=== PATIENT | female | born 1935 ===

== ENCOUNTER → 2016-05-21 | Outpatient (CLI) | payer MEDICARE, BC ==
--- NOTE | 2016-06-06 09:28 | MM ---
Reason for exam: screening (asymptomatic). Last mammogram was performed 2 years and 4 months ago. History: Patient is postmenopausal and is nulliparous. Family history of breast cancer in sister at age 68. Benign excisional biopsy of the left breast, 1978. Physical Findings: A clinical breast exam by your physician is recommended on an annual basis and results should be correlated with mammographic findings. MG 3D Screening Mammo W/Cad Bilateral CC and MLO view(s) were taken. Prior study comparison: January 26, 2014, mammogram, performed at [facility]. December 03, 2012, mammogram, performed at [facility]. The breast tissue is heterogeneously dense. This may lower the sensitivity of mammography. No suspicious calcifications are seen. Nodular density upper outer left breast, 6cm from nipple. This finding is changed when compared with previous exams. ASSESSMENT: Incomplete: need additional imaging evaluation, BI-RAD 0 RECOMMENDATION: Special view mammogram of the left breast. If lesion persists on supplemental views, image directed ultrasound is recommended. [facility] will attempt to contact patient to return for supplemental views and ultrasound if indicated.
== END | disposition home or self-care (01) ==
LOC: RADMAMWWP 09:29
PROVIDERS: ATTEND Family Medicine
DX: Z12.31 Encounter for screening mammogram for malignant neoplasm of breast (principal); R92.2 Inconclusive mammogram
CPT/HCPCS: 77063; G0202

== ENCOUNTER → 2016-06-09 | Outpatient (CLI) | payer MEDICARE, BC ==
--- NOTE | 2016-06-09 10:11 | MM ---
Reason for exam: additional evaluation requested from abnormal screening. Last mammogram was performed 1 month ago. History: Patient is postmenopausal and is nulliparous. Family history of breast cancer in sister at age 68. Benign excisional biopsy of the left breast, 1978. Physical Findings: Nurse did not find any significant physical abnormalities on exam. MG 3D Work Up W/Cad LT ML, spot compression MLO, and spot compression CC view(s) were taken of the left breast. Prior study comparison: May 21, 2016, bilateral MG 3d screening mammo w/cad. January 26, 2014, mammogram, performed at [facility]. The breast tissue is heterogeneously dense. This may lower the sensitivity of mammography. Probable chronic distortion at biopsy site. No significant new findings when compared with previous films. These results were verbally communicated with the patient and result sheet given to the patient on 06/09/16. ASSESSMENT: Probably benign, BI-RAD 3 RECOMMENDATION: Follow-up diagnostic mammogram of the left breast in 6 months.
== END | disposition home or self-care (01) ==
LOC: RADMAMWWP 09:01
PROVIDERS: ATTEND Family Medicine
DX: R92.8 Other abnormal and inconclusive findings on diagnostic imaging of breast (principal)
CPT/HCPCS: G0206; G0279

== ENCOUNTER → 2016-12-30 | Outpatient (CLI) | payer OTHER ==
--- NOTE | 2016-12-30 09:54 | MM ---
Reason for exam: follow-up at short interval from prior study. Last mammogram was performed 7 months ago. History: Patient is postmenopausal and is nulliparous. Family history of breast cancer in sister at age 68. Benign excisional biopsy of the left breast, 1978. Physical Findings: Nurse did not find any significant physical abnormalities on exam. MG 3D Diag Mammo W/Cad LT CC and MLO view(s) were taken of the left breast. Prior study comparison: June 09, 2016, left breast MG 3d work up w/cad LT. May 21, 2016, bilateral MG 3d screening mammo w/cad. The breast tissue is heterogeneously dense. This may lower the sensitivity of mammography. No suspicious calcifications are seen. Post operative changes in the left breast. No significant new findings when compared with previous films. These results were verbally communicated with the patient and result sheet given to the patient on 12/30/16. ASSESSMENT: Benign, BI-RAD 2 RECOMMENDATION: Return to routine screening mammogram schedule for both breasts. Back on schedule for May 2017.
== END | disposition home or self-care (01) ==
LOC: RADMAMWWP 08:55
PROVIDERS: ATTEND Family Medicine
DX: R92.8 Other abnormal and inconclusive findings on diagnostic imaging of breast (principal)
CPT/HCPCS: G0206; G0279

== ENCOUNTER → 2018-09-23 | Outpatient (CLI) | payer OTHER ==
--- NOTE | 2018-09-24 12:58 | MM ---
Reason for exam: screening (asymptomatic). Last mammogram was performed 1 year and 9 months ago. History: Patient is postmenopausal and is nulliparous. Family history of breast cancer in sister at age 68. Benign excisional biopsy of the left breast, 1978. Physical Findings: A clinical breast exam by your physician is recommended on an annual basis and results should be correlated with mammographic findings. MG 3D Screening Mammo W/Cad Bilateral CC and MLO view(s) were taken. Prior study comparison: December 30, 2016, left breast MG 3d diag mammo w/cad LT. June 09, 2016, left breast MG 3d work up w/cad LT. The breast tissue is heterogeneously dense. This may lower the sensitivity of mammography. Stable benign calcifications. There is no discrete abnormality. No significant changes when compared with prior studies. ASSESSMENT: Benign, BI-RAD 2 RECOMMENDATION: Routine screening mammogram of both breasts in 1 year.
== END | disposition home or self-care (01) ==
LOC: RADMAMWWP 11:35
PROVIDERS: ATTEND Family Medicine
DX: Z12.31 Encounter for screening mammogram for malignant neoplasm of breast (principal)
CPT/HCPCS: 77063; 77067

== ENCOUNTER → 2021-10-15 | Outpatient (CLI) | payer OTHER ==
--- NOTE | 2021-10-15 13:19 | XR ---
EXAMINATION TYPE: XR ribs RT DATE OF EXAM: 10/15/2021 CLINICAL HISTORY: Right-sided rib pain after coughing injury. TECHNIQUE: A frontal and oblique images of the right-sided ribs. COMPARISON: None FINDINGS: There is no acute displaced right-sided rib fracture. Visualized right lung is clear witho ut pneumothorax. Metallic anchors from rotator cuff surgery in the right humeral head are present. Ov erlying soft tissues are unremarkable. IMPRESSION: As above.
== END | disposition home or self-care (01) ==
LOC: RADXRMAIN 12:45
PROVIDERS: ATTEND Family Medicine
DX: R07.81 Pleurodynia (principal)

== ENCOUNTER → 2022-01-31 | Outpatient (CLI) | payer MEDICARE, BC ==
--- NOTE | 2022-01-31 13:53 | XR ---
EXAMINATION TYPE: XR chest 2V DATE OF EXAM: 01/31/2022 COMPARISON: NONE HISTORY: Shortness of breath TECHNIQUE: Frontal and lateral views of the chest are obtained. FINDINGS: Scattered senescent parenchymal changes noted. Hyperinflation compatible with COPD. No evidence for infiltrate. No evidence for atelectasis. Heart size is stable. Mediastinal structures are stable and grossly unremarkable. No evidence for hilar prominence. Degenerative changes dorsal spine. IMPRESSION: 1. No evidence for acute pulmonary disease.
== END | disposition home or self-care (01) ==
LOC: RADXRMAIN 13:27
PROVIDERS: ATTEND Family Medicine
DX: R07.89 Other chest pain (principal)
CPT/HCPCS: 71046

== ENCOUNTER → 2022-08-11 | Outpatient (CLI) | payer MEDICARE, BC ==
--- NOTE | 2022-08-11 15:33 | XR ---
EXAMINATION TYPE: XR chest 2V DATE OF EXAM: 08/11/2022 COMPARISON: 01/31/2022 HISTORY: Shortness of breath TECHNIQUE: Frontal and lateral views of the chest are obtained. FINDINGS: Scattered senescent parenchymal changes noted. Hyperinflation compatible with COPD. No evidence for infiltrate. No evidence for atelectasis. Heart size is stable. Mediastinal structures are stable and grossly unremarkable. Fixed hiatal. No evidence for hilar prominence. Degenerative changes dorsal spine. IMPRESSION: 1. No evidence for acute pulmonary disease.
== END | disposition home or self-care (01) ==
LOC: RADXRMAIN 15:06
PROVIDERS: ATTEND Family Medicine
DX: R06.02 Shortness of breath (principal); R09.89 Other specified symptoms and signs involving the circulatory and respiratory systems
CPT/HCPCS: 71046

== ENCOUNTER → 2022-11-12 | Outpatient (CLI) | payer OTHER ==
--- NOTE | 2022-11-12 09:10 | MM ---
Reason for Exam: Screening (asymptomatic). Last mammogram was performed 1 year(s) and 1 month(s) ago. Patient History: Menarche at age 12. Patient has no children. Postmenopausal. 1978, Benign Excisional Biopsy on the left side. Sister had breast cancer, age 68. Prior Study Comparison: 12/30/2016 Left Diagnostic Mammogram, [facility]. 09/23/2018 Bilateral Screening Mammogram, [facility]. 09/24/2021 Bilateral Screening Mammogram, [facility]. Tissue Density: There are scattered fibroglandular densities. Findings: Analyzed By CAD. There is no suspicious group of microcalcifications or new suspicious mass in either breast. Overall Assessment: Negative, BI-RAD 1 Management: Screening Mammogram of both breasts in [address] [facility] will attempt to contact patient to return for supplemental views and ultrasound if indicated. Patient should continue monthly self-breast exams. A clinical breast exam by your physician is recommended on an annual basis. This exam should not preclude additional follow-up of suspicious palpable abnormalities. Note on Kasie scores and lifetime risk: 1. A Kasie score greater than 3% is considered moderate risk. If this is the case, consider specialist referral to assess eligibility for a risk reducing agent. 2. If overall lifetime risk for the development of breast cancer is 20% or higher, the patient may qualify for future screening with alternating mammogram and breast MRI. Electronically signed and approved by: David Ho DO
== END | disposition home or self-care (01) ==
LOC: RADMAMWWP 07:47
DX: Z12.31 Encounter for screening mammogram for malignant neoplasm of breast (principal); Z78.0 Asymptomatic menopausal state; Z80.3 Family history of malignant neoplasm of breast
CPT/HCPCS: 77063; 77067

== ENCOUNTER 2023-07-14 05:49 | Emergency (ER) | payer MEDICARE, BC ==
[2023-07-14 05:59] VITALS: RESP 18
[2023-07-14 06:26] LABS: Basophils % (A) 1 %; Eosinophils # (A) 0.3 k/uL (0-0.7); Eosinophils % (A) 4 %; HCT 44.2 % (34.0-46.0); HGB 14.6 gm/dL (11.4-16.0); Lymphocytes # (A) 1.7 k/uL (1.0-4.8); Lymphocytes % (A) 25 %; MCV 91.1 fL (80.0-100.0); Mean Platelet Volume 7.9; Monocytes # (A) 0.4 k/uL (0-1.0); Monocytes % (A) 6 %; Neutrophils # (A) 4.3 k/uL (1.3-7.7); Neutrophils % (A) 63 %; Platelet Count 241 k/uL (150-450); RBC 4.86 m/uL (3.80-5.40); RDW 13.2 % (11.5-15.5); WBC 6.8 k/uL (3.8-10.6)
[2023-07-14] MEDS: SODIUM CHLORIDE 0.9% 500 ML 500 ML IV STA (06:30)
[2023-07-14 06:36] LABS: ALT 14 U/L (4-34); African American GFR (CKD) >90 (>60 ml/min/1.73 sqM); Albumin 4.1 g/dL (3.5-5.0); Anion Gap 9 mmol/L; Blood Urea Nitrogen 18 mg/dL (7-17); Calcium 9.2 mg/dL (8.4-10.2); Carbon Dioxide 21 mmol/L (22-30); Chloride 108 mmol/L (98-107); Glucose 104 mg/dL (74-99); Non-African American GFR(CKD) 81 (>60 ml/min/1.73 sqM); Sodium 138 mmol/L (137-145); Total Bilirubin 0.7 mg/dL (0.2-1.3); Total Protein 6.8 g/dL (6.3-8.2)
[2023-07-14 06:39] LABS: AST 30 U/L (14-36); Alkaline Phosphatase 69 U/L (38-126); Magnesium 1.9 mg/dL (1.6-2.3); Potassium 4.5 mmol/L (3.5-5.1)
--- NOTE | 2023-07-14 07:29 | XR ---
EXAMINATION TYPE: XR chest 2V DATE OF EXAM: 07/14/2023 COMPARISON: 08/11/2022 INDICATION: Fall TECHNIQUE: Frontal and lateral views of the chest are obtained. FINDINGS: The heart size is normal. The pulmonary vasculature is normal. The lungs are clear. No displaced rib fractures are identified. No pneumothorax is evident. IMPRESSION: 1. No acute pulmonary process.
--- NOTE | 2023-07-14 07:34 | CT ---
EXAMINATION TYPE: CT brain morro melara DATE OF EXAM: 07/14/2023 COMPARISON: None HISTORY: Fall CT DLP: 1351.5 mGycm, Automated exposure control for dose reduction was used. CONTRAST: Patient injected with mL of . CT of the brain is performed utilizing 3 mm thick sections through the posterior fossa and 3 mm thick sections through the remaining calvarium. Study is performed within 24 hours of arrival to the hospital. No abnormal hyperdensity is present to suggest an acute intracranial hemorrhage. No mass lesion is evident. No acute infarcts are evident. There is patchy periventricular white matter hypodensity, likely on t he basis of chronic white matter ischemic changes. No suspicious acute intracranial process. No acute posttraumatic change is identified. Ventricles and sulci are prominent for the patient age. There is an air-fluid level within the sphenoid sinus. Correlate for acute sphenoid sinusitis. Remain ing paranasal sinuses are clear. Mastoid air cells are clear. IMPRESSIONS: 1. Atrophy with chronic appearing periventricular white matter ischemic changes. 2. No acute intracranial process. Follow-up MRI can be performed as clinically indicated CT cervical spine. COMPARISON: None CT of the cervical spine is performed in the axial plane at 2 mm thick sections. Reconstructed image s in the coronal, and sagittal plane are reviewed on the computer. No acute fractures are evident. Vertebral body alignment is normal. Diffuse narrowing of disc height is present. Some mild spondylosis is present at C4-5. Vertebral body heights are preserved. No spinal canal stenosis is evident. No neural foraminal stenosis is evident. Spina bifida occulta of C1 is evident. IMPRESSION: 1. No acute posttraumatic changes cervical spine
--- NOTE | 2023-07-14 07:36 | ED ---
Fall HPI - General Chief Complaint: Fall Stated Complaint: Fall, head injury Time Seen by Provider: 07/14/23 05:57 Source: patient, RN notes reviewed Mode of arrival: wheelchair Limitations: no limitations - History of Present Illness Initial Comments: 87-year-old female presents emergency department with chief plaint of fall around 3 PM yesterday. Patient states that she was coming outside front in the room was waiting for her to get the vehicle when she just suddenly fell. She states an episode 1 week ago with similar event. Patient states she is unsure why she is falling. She does complain of upper abdominal pain and pressure denies chest pain shortness of breath no dizzy spells no focal weakness denies any fevers chills cough congestion - Related Data Home Medications Medication Instructions Recorded Confirmed Unable To Assess [Unable to Assess] 05/11/15 05/11/15 Allergies Allergy/AdvReac Type Severity Reaction Status Date / Time amoxicillin trihydrate Allergy Unknown Verified 07/14/23 05:58 [From Augmentin] atropine Allergy Unknown Verified 07/14/23 05:58 ciprofloxacin [From Cipro] Allergy Unknown Verified 07/14/23 05:58 ciprofloxacin HCl Allergy Unknown Verified 07/14/23 05:58 [From Cipro] meperidine HCl [From Demerol] Allergy Unknown Verified 07/14/23 05:58 morphine Allergy Unknown Verified 07/14/23 05:58 potassium clavulanate Allergy Unknown Verified 07/14/23 05:58 [From Augmentin] prednisone Allergy Unknown Verified 07/14/23 05:58 pregabalin [From Lyrica] Allergy Unknown Verified 07/14/23 05:58 prochlorperazine Allergy Unknown Verified 07/14/23 05:58 [From Compazine] prochlorperazine edisylate Allergy Unknown Verified 07/14/23 05:58 [From Compazine] prochlorperazine maleate Allergy Unknown Verified 07/14/23 05:58 [From Compazine] Review of Systems ROS Statement: Those systems with pertinent positive or pertinent negative responses have been documented in the HPI. ROS Other: All systems not noted in ROS Statement are negative. Past Medical History Past Medical History: Fibromyalgia, Hypertension, Pulmonary Embolus (PE) History of Any Multi-Drug Resistant Organisms: None Reported Past Surgical History: Cholecystectomy, Joint Replacement, Orthopedic Surgery Additional Past Surgical History / Comment(s): Rt Knee, Lt knee, Rt shoulder, Rt wrist Past Psychological History: No Psychological Hx Reported Smoking Status: Never smoker Past Alcohol Use History: Occasional, Rare Past Drug Use History: None Reported General Exam Limitations: no limitations General appearance: alert, in no apparent distress Head exam: Present: atraumatic, normocephalic, normal inspection Eye exam: Present: normal appearance, PERRL, EOMI. Absent: scleral icterus, conjunctival injection, periorbital swelling ENT exam: Present: normal exam, normal oropharynx, mucous membranes moist Neck exam: Present: normal inspection, full ROM. Absent: tenderness, meningismus, lymphadenopathy Respiratory exam: Present: normal lung sounds bilaterally. Absent: respiratory distress, wheezes, rales, rhonchi, stridor Cardiovascular Exam: Present: regular rate, normal rhythm, normal heart sounds. Absent: systolic murmur, diastolic murmur, rubs, gallop, clicks GI/Abdominal exam: Present: soft, distended, tenderness, normal bowel sounds. Absent: guarding, rebound, rigid Back exam: Present: full ROM. Absent: tenderness, muscle spasm, paraspinal tenderness Neurological exam: Present: alert, oriented X3, CN II-XII intact, reflexes normal. Absent: motor sensory deficit Course Vital Signs 07/14/23 07/14/23 07/14/23 05:53 08:00 09:30 Temperature 98 F 98.1 F 98.0 F Pulse Rate 81 72 69 Respiratory 18 18 18 Rate Blood Pressure 188/82 192/82 182/89 O2 Sat by Pulse 96 96 94 L Oximetry Medical Decision Making - Medical Decision Making Was pt. sent in by a medical professional or institution (, PA, MUSIC DEPARTMENT CHAIR, urgent care, hospital, or senior care...) When possible be specific @ -No Did you speak to anyone other than the patient for history (EMS, parent, family, police, friend...)? What history was obtained from this source @ -No Did you review nursing and triage notes (agree or disagree)? Why? @ -I reviewed and agree with nursing and triage notes Were old charts reviewed (outside hosp., previous admission, EMS record, old EKG, old radiological studies, urgent care reports/EKG's, senior care records)? Report findings @ -No old charts were reviewed Differential Diagnosis (chest pain, altered mental status, abdominal pain women, abdominal pain men, vaginal bleeding, weakness, fever, dyspnea, syncope, headache, dizziness, GI bleed, back pain, seizure, CVA, palpatations, mental health, musculoskeletal)? @ -Differential Weakness: Hypoglycemia, shock, sepsis, hyponatremia, anemia, infection, NJ, ETOH, adverse medicine reaction, overdose, stroke, this is not meant to be an all-inclusive list. EKG interpreted by me (3pts min.). @ -As above X-rays interpreted by me (1pt min.). @ -[Chest shows no acute cardiopulmonary process. CT interpreted by me (1pt min.). @ -CT brain, C-spine shows no acute abnormality CT of the abdomen pelvis showing large hiatal hernia otherwise no acute intra- abdominal process U/S interpreted by me (1pt. min.). @ -None done What testing was considered but not performed or refused? (CT, X-rays, U/S, labs)? Why? @ -None What meds were considered but not given or refused? Why? @ -None Did you discuss the management of the patient with other professionals (professionals i.e. , PA, MUSIC DEPARTMENT CHAIR, lab, RT, psych nurse, executive secretary social welfare, repairer welding equipment, teacher, quality officer, lead case manager)? Give summary @ -No Was smoking cessation discussed for >3mins.? @ -No Was critical care preformed (if so, how long)? @ -No Were there social determinants of health that impacted care today? How? (Homelessness, low income, unemployed, alcoholism, drug addiction, transportation, low edu. Level, literacy, decrease access to med. care, usp, rehab)? @ -No Was there de-escalation of care discussed even if they declined (Discuss DNR or withdrawal of care, Hospice)? DNR status @ -No What co-morbidities impacted this encounter? (DM, HTN, Smoking, COPD, CAD, Cancer, CVA, ARF, Chemo, Hep., AIDS, mental health diagnosis, sleep apnea, morbid obesity)? @ -None Was patient admitted / discharged? Hospital course, mention meds given and route, prescriptions, significant lab abnormalities, going to OR and other pertinent info. @ -Discharge patient stable at this time she is asymptomatic patient for workup with no acute findings. Patient is discharged with close follow-up return bra nvs discussed. Undiagnosed new problem with uncertain prognosis? @ -No Drug Therapy requiring intensive monitoring for toxicity (Heparin, Nitro, Insulin, Cardizem)? @ -No Were any procedures done? @ -No Diagnosis/symptom? @ -Fall, hiatal hernia Acute, or Chronic, or Acute on Chronic? @ -Acute Uncomplicated (without systemic symptoms) or Complicated (systemic symptoms)? @ -Uncomplicated Side effects of treatment? @ -No Exacerbation, Progression, or Severe Exacerbation? @ -No Poses a threat to life or bodily function? How? (Chest pain, USA, NJ, pneumonia, PE, COPD, DKA, ARF, appy, cholecystitis, CVA, Diverticulitis, Homicidal, Suicidal, threat to staff... and all critical care pts) @ -No - Lab Data Result diagrams: 07/14/23 06:20 07/14/23 06:20 Lab Results 07/14/23 07/14/23 07/14/23 Range/Units 06:20 06:20 06:20 WBC 6.8 (3.8-10.6) k/uL RBC 4.86 (3.80-5.40) m/uL Hgb 14.6 (11.4-16.0) gm/dL Hct 44.2 (34.0-46.0) % MCV 91.1 (80.0-100.0) fL MCH 30.0 (25.0-35.0) pg MCHC 33.0 (31.0-37.0) g/dL RDW 13.2 (11.5-15.5) % Plt Count 241 (150-450) k/uL MPV 7.9 Neutrophils % 63 % Lymphocytes % 25 % Monocytes % 6 % Eosinophils % 4 % Basophils % 1 % Neutrophils # 4.3 (1.3-7.7) k/uL Lymphocytes # 1.7 (1.0-4.8) k/uL Monocytes # 0.4 (0-1.0) k/uL Eosinophils # 0.3 (0-0.7) k/uL Basophils # 0.0 (0-0.2) k/uL Sodium 138 (137-145) mmol/L Potassium 4.5 (3.5-5.1) mmol/L Chloride 108 H (98-107) mmol/L Carbon Dioxide 21 L (22-30) mmol/L Anion Gap 9 mmol/L BUN 18 H (7-17) mg/dL Creatinine 0.64 (0.52-1.04) mg/dL Est GFR (CKD-EPI)AfAm >90 (>60 ml/min/1.73 sqM) Est GFR (CKD-EPI)NonAf 81 (>60 ml/min/1.73 sqM) Glucose 104 H (74-99) mg/dL Plasma Lactic Acid Williams (0.7-2.0) mmol/L Calcium 9.2 (8.4-10.2) mg/dL Magnesium 1.9 (1.6-2.3) mg/dL Total Bilirubin 0.7 (0.2-1.3) mg/dL AST 30 (14-36) U/L ALT 14 (4-34) U/L Alkaline Phosphatase 69 (38-126) U/L Troponin I <0.012 (0.000-0.034) ng/mL Total Protein 6.8 (6.3-8.2) g/dL Albumin 4.1 (3.5-5.0) g/dL Urine Color Urine Appearance (Clear) Urine pH (5.0-8.0) Ur Specific Bard (1.001-1.035) Urine Protein (Negative) Urine Glucose (UA) (Negative) Urine Ketones (Negative) Urine Blood (Negative) Urine Nitrite (Negative) Urine Bilirubin (Negative) Urine Urobilinogen (<2.0) mg/dL Ur Leukocyte Esterase (Negative) 07/14/23 07/14/23 Range/Units 06:30 08:27 WBC (3.8-10.6) k/uL RBC (3.80-5.40) m/uL Hgb (11.4-16.0) gm/dL Hct (34.0-46.0) % MCV (80.0-100.0) fL MCH (25.0-35.0) pg MCHC (31.0-37.0) g/dL RDW (11.5-15.5) % Plt Count (150-450) k/uL MPV Neutrophils % % Lymphocytes % % Monocytes % % Eosinophils % % Basophils % % Neutrophils # (1.3-7.7) k/uL Lymphocytes # (1.0-4.8) k/uL Monocytes # (0-1.0) k/uL Eosinophils # (0-0.7) k/uL Basophils # (0-0.2) k/uL Sodium (137-145) mmol/L Potassium (3.5-5.1) mmol/L Chloride (98-107) mmol/L Carbon Dioxide (22-30) mmol/L Anion Gap mmol/L BUN (7-17) mg/dL Creatinine (0.52-1.04) mg/dL Est GFR (CKD-EPI)AfAm (>60 ml/min/1.73 sqM) Est GFR (CKD-EPI)NonAf (>60 ml/min/1.73 sqM) Glucose (74-99) mg/dL Plasma Lactic Acid Williams 1.4 (0.7-2.0) mmol/L Calcium (8.4-10.2) mg/dL Magnesium (1.6-2.3) mg/dL Total Bilirubin (0.2-1.3) mg/dL AST (14-36) U/L ALT (4-34) U/L Alkaline Phosphatase (38-126) U/L Troponin I (0.000-0.034) ng/mL Total Protein (6.3-8.2) g/dL Albumin (3.5-5.0) g/dL Urine Color Colorless Urine Appearance Clear (Clear) Urine pH 6.0 (5.0-8.0) Ur Specific Bard 1.035 (1.001-1.035) Urine Protein Negative (Negative) Urine Glucose (UA) Negative (Negative) Urine Ketones Negative (Negative) Urine Blood Negative (Negative) Urine Nitrite Negative (Negative) Urine Bilirubin Negative (Negative) Urine Urobilinogen <2.0 (<2.0) mg/dL Ur Leukocyte Esterase Negative (Negative) - EKG Data -: EKG Interpreted by Me EKG Comments: EKG performed at 6: 07 sinus rhythm with a rate of 76 TX 173 QRS 92 QT/QTc 403/433 Disposition Clinical Impression: Fall, Closed head injury, Hiatal hernia Disposition: HOME SELF-CARE Condition: Stable Instructions (If sedation given, give patient instructions): Head Injury (ED) Additional Instructions: Please return to the Emergency Department if symptoms worsen or any other concerns. Is patient prescribed a controlled substance at d/c from ED?: No Referrals: Dirk Rivera DO [Primary Care Provider] - 1-2 days Time of Disposition: 09:07
--- NOTE | 2023-07-14 07:37 | CT ---
EXAMINATION TYPE: CT abdomen pelvis w con DATE OF EXAM: 07/14/2023 COMPARISON: None INDICATION: Upper abd pain, possible mass DLP: 1761.8 mGycm, Automated exposure control for dose reduction was used. CONTRAST: 100 mL of Isovue 300. Study performed without Oral Contrast TECHNIQUE: Axial images were obtained from above the diaphragm to the pubic rami in the axial plane a t 5 mm thick sections. Reconstructed images are reviewed on the computer in the coronal plane. FINDINGS: Limited CT sections are obtained the lung bases. The lung bases are clear. There is a moderately la rge hiatal hernia. No pneumothorax evident. CT ABDOMEN: No suspicious free fluid within the abdomen or pelvis is evident. No organ laceration jacky dent. Liver: Normal Spleen: Normal Pancreas: Normal Adrenal glands: The adrenal glands are normal. Gallbladder: Not identified Kidneys: No masses evident. No hydronephrosis is present. No cysts are present. Delayed images wer e obtained through the kidneys, which remain unremarkable. Aorta: Vascular calcification is within the aorta. Inferior vena cava: Normal. CT PELVIS: Loops of bowel within the abdomen and pelvis are normal. Study is without oral contrast limiting bowel evaluation. Appendix: Not clearly identified. No suspicious dilated tubular structure or inflammatory change is e vident. Urinary bladder: Normal. Genitourinary structures: Uterus appears atrophic. Adnexa appear normal. Osseous structures: No suspicious lytic or sclerotic lesions. No acute fractures identified. Degenera tive disc changes are within the lumbar spine IMPRESSION: 1. No acute posttraumatic changes CT abdomen and pelvis. 2. Large hiatal hernia
[2023-07-14 09:06] LABS: Appearance,Urine Clear (Clear); Bilirubin,Urine Negative (Negative); Blood,Urine Negative (Negative); Color,Urine Colorless; Glucose,Urine (UA) Negative (Negative); Ketones,Urine Negative (Negative); Leukocyte Esterase,Urine Negative (Negative); Nitrite,Urine Negative (Negative); Protein,Urine Negative (Negative); Specific Gravity,Urine 1.035 (1.001-1.035); Urobilinogen,Urine <2.0 mg/dL (<2.0)
[2023-07-14] MEDS: amLODIPine 5 MG TAB PO STA (09:32)
[2023-07-14] MEDS: VALSARTAN 160 MG TAB PO STA (09:32)
[2023-07-14] MEDS: PANTOPRAZOLE 40 MG TABLET PO STA (09:32)
[2023-07-14 09:46] VITALS: BP 182/89; PULSE 69; TEMP 98
== END 2023-07-14 09:55 | disposition home or self-care (01) ==
LOC: EC 05:49
DX: S09.90XA Unspecified injury of head, initial encounter (principal); K44.9 Diaphragmatic hernia without obstruction or gangrene; Q76.0 Spina bifida occulta; I45.10 Unspecified right bundle-branch block; I67.82 Cerebral ischemia; I10 Essential (primary) hypertension; Z88.0 Allergy status to penicillin; Z88.1 Allergy status to other antibiotic agents; Z88.8 Allergy status to other drugs, medicaments and biological substances; W18.30XA Fall on same level, unspecified, initial encounter
CPT/HCPCS: 36415; 93005; 80053; 83605; 83735; 84484; 85025; 81003; 71046; 72125; 70450; 74177; 99285; 96360; Q9967

== ENCOUNTER 2024-01-06 13:45 | Emergency (ER) | payer MEDICARE, BC ==
[2024-01-06] MEDS ORDERED: Acetaminophen-Codeine 300-30mg TAB ONE (17:16)
--- NOTE | 2024-01-28 09:28 | CT ---
EXAMINATION TYPE: CT thor lumbar spine wo con DATE OF EXAM: 01/06/2024 COMPARISON: None HISTORY: 88-year-old female frequent falls with mid back pain TECHNIQUE: Contiguous axial scanning of the thoracic and lumbar spine without IV contrast. Coronal an d sagittal reconstructions performed. CT DLP: 1402 mGycm Automated exposure control for dose reduction was used. FINDINGS: Thoracic spine: Accentuated lower thoracic kyphosis with moderate degenerative disc disease lower thoracic spine. Fac et arthropathy lower cervical and upper thoracic spine with degenerative grade 1 anterolisthesis C7-T 1. Remaining alignment is maintained. By CT, no large focal disc herniation are evident canal compromise is seen. Vertebral body heights ar e preserved. Slight dextroconvexed curvature upper third thoracic spine. Incidental moderate sized hiatal hernia and osteopenia. 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 Advanced hypertrophic facet arthr opathy is present with degenerative grade 1 retrolisthesis T12-L4 levels and trace grade 1 anterolist hesis L4-L5. Moderate to advanced multilevel degenerative disc disease. Bulging discs particularly at L4-L5 with c orresponding marked ligamentum flavum thickening may contribute to a severe focal spinal canal stenos is. On the left, changes resulting in moderate neural foraminal stenoses from L3 through S1 levels. On the right, changes of blood within moderate neural foraminal stenoses at L4-L5 and L5-S1. Mild at L2-L3 and L3-L4. IMPRESSION: THORACIC SPINE: 1. ACCENTUATED LOWER THORACIC KYPHOSIS WITH MODERATE DEGENERATIVE DISC DISEASE. 2. DEGENERATIVE GRADE 1 ANTEROLISTHESIS C7-T1. 3. NO VERTEBRAL COMPRESSION COLLAPSE. NO EVIDENT CANAL COMPROMISE. INCIDENTAL: MODERATE-SIZED HIATAL HERNIA. LUMBAR SPINE: 4. MODERATE TO ADVANCED MULTILEVEL DEGENERATIVE DISC DISEASE. 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 5. 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 NO VERTEBRAL COMPRESSION COLLAP SE. 6. POSTERIOR DISC BULGE IN COMBINATION WITH SEVERE LIGAMENTUM FLAVUM THICKENING AND THE ANTEROLISTHES IS AT L4-L5 CONTRIBUTES TO A POSSIBLE SEVERE FOCAL SPINAL CANAL STENOSIS. 7. MODERATE NEURAL FORAMINAL STENOSES IN THE MID AND LOWER LUMBAR SPINE OUTLINED ABOVE.
== END 2024-01-06 22:16 | disposition home or self-care (01) ==
LOC: EC 13:45
CPT/HCPCS: 72128; 72131; 99284

== ENCOUNTER → 2024-01-15 | Outpatient (CLI) | payer MEDICARE, BC ==
[2024-01-15 11:34] LABS: African American GFR (CKD) 87 (>60 ml/min/1.73 sqM); Blood Urea Nitrogen 18 mg/dL (7-17); Non-African American GFR(CKD) 76 (>60 ml/min/1.73 sqM)
--- NOTE | 2024-01-15 12:13 | CT ---
EXAMINATION TYPE: CT orbits wo/w con DATE OF EXAM: 01/15/2024 COMPARISON: None HISTORY: c/o double vision CT DLP: 738 mGycm Automated exposure control for dose reduction was used. CONTRAST: Performed without and with IV Contrast, patient injected with 100 mL of Isovue 300. FINDINGS: Orbits are symmetric in appearance. Optic nerves are symmetric. Extraocular muscles have a normal ruperto earance. There is a intraocular mass of the left orbit measuring 1.1 cm along the medial margin of the orbit. Mild changes of chronic sinusitis with more moderate to severe changes of the sphenoid sinus. Nasopha rynx and oropharynx symmetric. Visualized parotid glands normal. 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 IMPRESSION: THERE IS A LEFT INTRAORBITAL 1.1 CM MASS. RECOMMEND FOLLOW-UP MRI ORBITS WITH CONTRAST.
== END | disposition home or self-care (01) ==
LOC: RADCTMAIN 10:23
PROVIDERS: ATTEND Ophthalmology Ophthalmic Plastic and Reconstructive Surgery
DX: D48.7 Neoplasm of uncertain behavior of other specified sites (principal); H05.9 Unspecified disorder of orbit; J32.3 Chronic sphenoidal sinusitis
CPT/HCPCS: 82565; 84520; 70482; 36415; Q9967

== ENCOUNTER 2024-01-19 22:37 | Emergency (ER) | payer MEDICARE, BC ==
[2024-01-19 22:43] VITALS: RESP 18
--- NOTE | 2024-01-19 23:42 | ED ---
Fall HPI - General Chief Complaint: Fall Stated Complaint: fall-head injury Time Seen by Provider: 01/19/24 22:48 Source: patient, RN notes reviewed Mode of arrival: wheelchair Limitations: no limitations - History of Present Illness Initial Comments: This is an 88-year-old female who presents to the emergency department for a head injury. Around 7 PM this evening she tripped and fell, hitting her head on the ledge of a cement/stone fireplace. There was no loss of consciousness. Not on any blood thinners. However, she has had increased pain and swelling to the left side of her head. Additionally, also complains of pain to the left shoulder and left knee. She is still able to ambulate and is able to bend and use her left leg and left arm/shoulder without difficulty. MD Complaint: fall - Related Data Home Medications Medication Instructions Recorded Confirmed Unable To Assess [Unable to Assess] 05/11/15 05/11/15 Allergies Allergy/AdvReac Type Severity Reaction Status Date / Time amoxicillin trihydrate Allergy Unknown Verified 01/19/24 22:43 [From Augmentin] atropine Allergy Unknown Verified 01/19/24 22:43 ciprofloxacin [From Cipro] Allergy Unknown Verified 01/19/24 22:43 ciprofloxacin HCl Allergy Unknown Verified 01/19/24 22:43 [From Cipro] meperidine HCl [From Demerol] Allergy Unknown Verified 01/19/24 22:43 morphine Allergy Unknown Verified 01/19/24 22:43 potassium clavulanate Allergy Unknown Verified 01/19/24 22:43 [From Augmentin] prednisone Allergy Unknown Verified 01/19/24 22:43 pregabalin [From Lyrica] Allergy Unknown Verified 01/19/24 22:43 prochlorperazine Allergy Unknown Verified 01/19/24 22:43 [From Compazine] prochlorperazine edisylate Allergy Unknown Verified 01/19/24 22:43 [From Compazine] prochlorperazine maleate Allergy Unknown Verified 01/19/24 22:43 [From Compazine] Review of Systems ROS Statement: Those systems with pertinent positive or pertinent negative responses have been documented in the HPI. ROS Other: All systems not noted in ROS Statement are negative. Past Medical History Past Medical History: Fibromyalgia, Hypertension, Pulmonary Embolus (PE) History of Any Multi-Drug Resistant Organisms: None Reported Past Surgical History: Cholecystectomy, Joint Replacement, Orthopedic Surgery Additional Past Surgical History / Comment(s): Rt Knee, Lt knee, Rt shoulder, Rt wrist Past Psychological History: No Psychological Hx Reported Smoking Status: Never smoker Past Alcohol Use History: Occasional, Rare Past Drug Use History: None Reported General Exam Limitations: no limitations General appearance: alert, in no apparent distress Head exam: Present: other (Tenderness to palpation over the left side of the head with palpable hematoma) Eye exam: Present: normal appearance, PERRL, EOMI. Absent: scleral icterus, conjunctival injection, periorbital swelling Respiratory exam: Present: normal lung sounds bilaterally. Absent: respiratory distress, wheezes, rales, rhonchi, stridor Cardiovascular Exam: Present: regular rate, normal rhythm, normal heart sounds. Absent: systolic murmur, diastolic murmur, rubs, gallop, clicks Extremities exam: Present: other (Tenderness to palpation over the left knee with mild ecchymosis. Mild tenderness over the left shoulder. Full range of motion. 2+ radial pulses.) Neurological exam: Present: alert, oriented X3, CN II-XII intact Psychiatric exam: Present: normal affect, normal mood Skin exam: Present: warm, dry, intact, normal color. Absent: rash Course Vital Signs 01/19/24 01/20/24 22:40 00:20 Temperature 97.8 F 98.1 F Pulse Rate 84 78 Respiratory 18 18 Rate Blood Pressure 134/74 128/75 O2 Sat by Pulse 96 96 Oximetry Medical Decision Making - Medical Decision Making This is an 88 year old female who presents to the emergency department for a fall. Was pt. sent in by a medical professional or institution? @ -No Did you speak to anyone other than the patient for history? @ -No Did you review nursing and triage notes? @ -Yes, and I agree, it is accurate with regards to the patient's symptoms. Were old charts reviewed? @ -No Differential Diagnosis? @ -Differential Diagnosis Head Injury: Contusion, hematoma, intracranial hemorrhage, skull fracture, whiplash, concussion, this is not meant to be an all-inclusive list. EKG interpreted by me (3pts min.)? @ -Not obtained X-rays interpreted by me (1pt min.)? @ -X-ray of the left shoulder and left knee obtained. My interpretation of both images identifies no acute fractures. CT interpreted by me (1pt min.)? @ -Computed tomography scan of the brain and c-spine obtained. My interpretation identifies no evidence of an acute intracranial hemorrhage, skull fracture, or cervical spine fracture. U/S interpreted by me (1pt. min.)? @ -Not obtained What testing was considered but not performed? (CT, X-rays, U/S, labs)? Why? @ -None What meds were considered but not given? Why? @ -None Did you discuss the management of the patient with other professionals? @ -No Did you reconcile home meds? @ -No Was smoking cessation discussed for >3mins.? @ -No Was critical care preformed (if so, how long)? @ -No Were there social determinants of health that impacted care today? How? (Homelessness, low income, unemployed, alcoholism, drug addiction, transportation, low edu. Level, literacy, decrease access to med. care, shelter, rehab)? @ -No Was there de-escalation of care discussed even if they declined? (Discuss DNR or withdrawal of care, Hospice)? @ -No What co-morbidities impacted this encounter? (DM, HTN, Smoking, COPD, CAD, Cancer, CVA, Hep., AIDS, mental health diagnosis, sleep apnea, morbid obesity)? @ -Osteoarthritis Was patient admitted / discharged? @ -Discharged. CT scan of the brain and C-spine obtained revealing no acute process. X-ray of the left knee and left shoulder revealed no acute process. Patient declined the need for any pain medication in the emergency department. She has tramadol and Tylenol #3 at home to be used if needed. Advised also taking regular Tylenol and icing the painful areas. Patient discharged home in stable condition. Case discussed with ED attending Dr. Burden. Return precautions reviewed in depth, the patient is instructed to return to the emergency department with any new, worsening, or concerning symptoms. Patient verbalized understanding. Undiagnosed new problem with uncertain prognosis? @ -None Drug Therapy requiring intensive monitoring for toxicity (Heparin, Nitro, Insulin, Cardizem)? @ -None Were any procedures done? @ -None Diagnosis/symptom? @ -Fall, head injury Acute, or Chronic, or Acute on Chronic? @ -Acute Uncomplicated (without systemic symptoms) or Complicated (systemic symptoms)? @ -Uncomplicated Side effects of treatment? @ -None Exacerbation, Progression, or Severe Exacerbation] @ -Not applicable Poses a threat to life or bodily function? @ -No - Radiology Data Radiology results: report reviewed, image reviewed Disposition Clinical Impression: Fall, Head injury Disposition: HOME SELF-CARE Instructions (If sedation given, give patient instructions): Fall Prevention for Older Adults (ED) Additional Instructions: Return to the emergency department with any new, worsening, or concerning symptoms. Follow up with your primary care provider in 1-2 days. Is patient prescribed a controlled substance at d/c from ED?: No Referrals: Dirk Rivera DO [Primary Care Provider] - 1-2 days Time of Disposition: 00:15
--- NOTE | 2024-01-20 00:07 | CT ---
EXAM: CT Head Without Intravenous Contrast CLINICAL HISTORY: ITS.REASON CT Reason: Fall TECHNIQUE: Axial computed tomography images of the head/brain without intravenous contrast. CTDI is 45.2 mGy and DLP is 1032 mGy-cm. This CT exam was performed using one or more of the following dose reduction techniques: automated exposure control, adjustment of the mA and/or kV according to patient size, and/or use of iterative reconstruction technique. COMPARISON: No relevant prior studies available. FINDINGS: Brain: Age-related cerebral volume loss. Periventricular and subcortical white matter hypoattenuation, consistent with chronic microangiopathy. No acute intracranial hemorrhage. No midline shift or mass effect. Ventricles: Unremarkable. No ventriculomegaly. Bones/joints: Unremarkable. No acute fracture. Soft tissues: Unremarkable. Sinuses: Unremarkable as visualized. No acute sinusitis. Mastoid air cells: Unremarkable as visualized. No mastoid effusion. IMPRESSION: No acute intracranial hemorrhage. No midline shift or mass effect. EXAM: CT Cervical Spine Without Intravenous Contrast CLINICAL HISTORY: ITS.REASON CT Reason: Fall TECHNIQUE: Axial computed tomography images of the cervical spine without intravenous contrast. CTDI is 10.2 mGy and DLP is 283.1 mGy-cm. This CT exam was performed using one or more of the following dose reduction techniques: automated exposure control, adjustment of the mA and/or kV according to patient size, and/or use of iterative reconstruction technique. COMPARISON: No relevant prior studies available. FINDINGS: The vertebral body heights are maintained. The craniocervical junction is intact. The atlanto-dens interval is maintained. The dens is intact. There is no spondylolisthesis. Multilevel cervical spondylosis and degenerative disc disease. Straightening of the cervical lordosis. The unenhanced neck soft tissues are grossly unremarkable. The visualized lung apices are grossly clear. IMPRESSION: No acute fracture or subluxation of the cervical spine.
[2024-01-20 00:27] VITALS: BP 128/75; PULSE 78; TEMP 98.1
--- NOTE | 2024-01-20 01:16 | XR ---
EXAM: XR Left Knee, 3 Views CLINICAL HISTORY: ITS.REASON XR Reason: Fall TECHNIQUE: Three views of the left knee. COMPARISON: No relevant prior studies available. 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 No periprosthetic fracture. Patellar resurfacing. No dislocation. Soft tissues: Unremarkable. IMPRESSION: Constrained LEFT knee arthroplasty with extended tibial and femoral components. No periprosthetic fracture.
--- NOTE | 2024-01-20 01:31 | XR ---
EXAM: XR Left Shoulder Complete, 2 or More Views CLINICAL HISTORY: ITS.REASON XR Reason: Fall TECHNIQUE: Two or more views of the left shoulder. COMPARISON: No relevant prior studies available. FINDINGS: Bones/joints: Diffuse osseous demineralization. No acute fracture or subluxation. Soft tissues: Unremarkable. IMPRESSION: No acute fracture or subluxation.
== END 2024-01-20 00:27 | disposition home or self-care (01) ==
LOC: EC 22:37
CPT/HCPCS: 70450; 72125; 99284

== ENCOUNTER 2024-08-07 13:19 | Emergency (ER) | payer OTHER, MEDICARE, BC ==
[2024-08-07 13:31] VITALS: RESP 18
--- NOTE | 2024-08-07 13:52 | ED ---
Neck Injury/Pain HPI - General Chief Complaint: Neck Pain/Injury Stated Complaint: L arm pain Time Seen by Provider: 08/07/24 13:49 Source: patient, family, RN notes reviewed Mode of arrival: EMS Limitations: no limitations - History of Present Illness Initial Comments: 88-year-old female presenting for neck pain x 1 day. States she has a history of a pinched nerve in her neck and reports this pain feels similar to previous flareups. Reports pain with range of motion of neck and radiation down left proximal arm. Denies injury or trauma. Denies chest pain, shortness of breath, fever, cough. States she has received injection of Toradol at urgent cares for this issue in the past which relieves pain. Denies blood thinners. - Related Data Previous Rx's Medication Instructions Recorded predniSONE [Deltasone] 40 mg PO DAILY 5 Days #10 tab 08/07/24 Allergies Allergy/AdvReac Type Severity Reaction Status Date / Time amoxicillin trihydrate Allergy Unknown Verified 01/19/24 22:43 [From Augmentin] atropine Allergy Unknown Verified 01/19/24 22:43 ciprofloxacin [From Cipro] Allergy Unknown Verified 01/19/24 22:43 ciprofloxacin HCl Allergy Unknown Verified 01/19/24 22:43 [From Cipro] meperidine HCl [From Demerol] Allergy Unknown Verified 01/19/24 22:43 morphine Allergy Unknown Verified 01/19/24 22:43 potassium clavulanate Allergy Unknown Verified 01/19/24 22:43 [From Augmentin] prednisone Allergy Unknown Verified 01/19/24 22:43 pregabalin [From Lyrica] Allergy Unknown Verified 01/19/24 22:43 prochlorperazine Allergy Unknown Verified 01/19/24 22:43 [From Compazine] prochlorperazine edisylate Allergy Unknown Verified 01/19/24 22:43 [From Compazine] prochlorperazine maleate Allergy Unknown Verified 01/19/24 22:43 [From Compazine] Review of Systems ROS Statement: Those systems with pertinent positive or pertinent negative responses have been documented in the HPI. ROS Other: All systems not noted in ROS Statement are negative. Past Medical History Past Medical History: Asthma, Fibromyalgia, Hypertension, Pulmonary Embolus (PE) History of Any Multi-Drug Resistant Organisms: None Reported Past Surgical History: Cholecystectomy, Joint Replacement, Orthopedic Surgery Additional Past Surgical History / Comment(s): Rt Knee, Lt knee, Rt shoulder, Rt wrist Past Psychological History: No Psychological Hx Reported Smoking Status: Never smoker Past Alcohol Use History: Occasional, Rare Past Drug Use History: None Reported General Exam Limitations: no limitations General appearance: alert, in no apparent distress Head exam: Present: atraumatic, normocephalic, normal inspection Eye exam: Present: normal appearance, PERRL, EOMI. Absent: scleral icterus, conjunctival injection, periorbital swelling ENT exam: Present: normal exam, mucous membranes moist Neck exam: Present: normal inspection, tenderness (Diffuse cervical spine tenderness and paraspinal tenderness, no point tenderness.), full ROM. Absent: meningismus, lymphadenopathy Respiratory exam: Present: normal lung sounds bilaterally. Absent: respiratory distress, wheezes, rales, rhonchi, stridor Cardiovascular Exam: Present: regular rate, normal rhythm, normal heart sounds. Absent: systolic murmur, diastolic murmur, rubs, gallop, clicks Extremities exam: Present: normal inspection, full ROM, normal capillary refill. Absent: tenderness, pedal edema, joint swelling, calf tenderness Neurological exam: Present: alert, oriented X3 Psychiatric exam: Present: normal affect, normal mood Skin exam: Present: warm, dry, intact, normal color. Absent: rash Course Vital Signs 08/07/24 13:25 Temperature 98.0 F Pulse Rate 87 Respiratory 18 Rate Blood Pressure 169/84 O2 Sat by Pulse 97 Oximetry Medical Decision Making - Medical Decision Making Was pt. sent in by a medical professional or institution (, PA, CORRECTIONS OFFICER, urgent care, hospital, or penitentiary...) When possible be specific @ -No Did you speak to anyone other than the patient for history (EMS, parent, family, police, friend...)? What history was obtained from this source @ -No Did you review nursing and triage notes (agree or disagree)? Why? @ -I reviewed and agree with nursing and triage notes Were old charts reviewed (outside hosp., previous admission, EMS record, old EKG, old radiological studies, urgent care reports/EKG's, penitentiary records)? Report findings @ -No old charts were reviewed Differential Diagnosis (chest pain, altered mental status, abdominal pain women, abdominal pain men, vaginal bleeding, weakness, fever, dyspnea, syncope, headache, dizziness, GI bleed, back pain, seizure, CVA, palpatations, mental health, musculoskeletal)? @ -Differential Musculoskeletal Muscular strain, contusion, ligament sprain, fracture, arthritis, septic arthritis, bursitis, cellulitis, muscle spasm, nerve compression, DVT, arterial occlusion, herpes zoster, electrolyte abnormality, tumor.... This is not meant to be in all inclusive list EKG interpreted by me (3pts min.). @ -None X-rays interpreted by me (1pt min.). @ -X-ray cervical spine CT interpreted by me (1pt min.). @ -None done U/S interpreted by me (1pt. min.). @ -None done What testing was considered but not performed or refused? (CT, X-rays, U/S, labs)? Why? @ -None What meds were considered but not given or refused? Why? @ -None Did you discuss the management of the patient with other professionals (professionals i.e. , PA, CORRECTIONS OFFICER, lab, RT, psych nurse, social insurance adviser, flight crew scheduler, teacher, public safety officer, case management social worker)? Give summary @ -No Was smoking cessation discussed for >3mins.? @ -No Was critical care preformed (if so, how long)? @ -No Were there social determinants of health that impacted care today? How? (Homelessness, low income, unemployed, alcoholism, drug addiction, transportation, low edu. Level, literacy, decrease access to med. care, nursing home, rehab)? @ -No Was there de-escalation of care discussed even if they declined (Discuss DNR or withdrawal of care, Hospice)? DNR status @ -No What co-morbidities impacted this encounter? (DM, HTN, Smoking, COPD, CAD, Cancer, CVA, ARF, Chemo, Hep., AIDS, mental health diagnosis, sleep apnea, m orbid obesity)? @ -None Was patient admitted / discharged? Hospital course, mention meds given and route, prescriptions, significant lab abnormalities, going to OR and other pertinent info. @ -Discharge. 88-year-old female presenting for neck pain x 1 day. States she has a history of a pinched nerve in the cervical spine and this feels similar to previous flareups. Denies trauma or injury. Neurovascularly intact. No red flag symptoms. Diffuse reproducible cervical spine tenderness. Patient was provided with dose of Toradol and Decadron. X-ray cervical spine reveals no acute fracture or dislocation, there is mild degenerative disc disease. Upon reevaluation, patient reports significant improvement in symptoms and feels stable for discharge. Discussed diagnosis of cervical radiculopathy. Prescribed outpatient course of prednisone to start tomorrow. Appropriate return precautions and follow-up care discussed. Case was discussed with my ED attending Dr. Medina. Undiagnosed new problem with uncertain prognosis? @ -No Drug Therapy requiring intensive monitoring for toxicity (Heparin, Nitro, Insulin, Cardizem)? @ -No Were any procedures done? @ -No Diagnosis/symptom? @ -Cervical radiculopathy Acute, or Chronic, or Acute on Chronic? @ -Acute Uncomplicated (without systemic symptoms) or Complicated (systemic symptoms)? @ -Uncomplicated Side effects of treatment? @ -No Exacerbation, Progression, or Severe Exacerbation? @ -No Poses a threat to life or bodily function? How? (Chest pain, [place], [place], pneumonia, PE, COPD, DKA, ARF, appy, cholecystitis, CVA, Diverticulitis, Homicidal, Suicidal, threat to staff... and all critical care pts) @ -No Disposition Clinical Impression: Cervical radiculopathy Disposition: HOME SELF-CARE Condition: Stable Instructions (If sedation given, give patient instructions): Cervical Radiculopathy (ED) Additional Instructions: Start prednisone tomorrow. Follow-up with your PCP as discussed. Please return to the Emergency Department if symptoms worsen or any other concerns. Prescriptions: predniSONE [Deltasone] 40 mg PO DAILY 5 Days #10 tab Is patient prescribed a controlled substance at d/c from ED?: No Referrals: Dirk Rivera DO [Primary Care Provider] - 1-2 days Time of Disposition: 15:56
--- NOTE | 2024-08-07 14:17 | XR ---
EXAMINATION TYPE: XR cervical spine comp DATE OF EXAM: 08/07/2024 2:13 PM COMPARISON: None CLINICAL INDICATION: Female, 88 years old with history of neck pain; pain TECHNIQUE: The cervical spine was imaged in frontal, lateral, odontoid and bilateral oblique. FINDINGS: The osseous structures show normal alignment without evidence of an acute fracture. There are osteoph ytes noted throughout the cervical spine on the anterior and lateral aspects of the vertebral bodies. The intervertebral disk spaces are narrowed at multiple levels. Pedicles are intact. Soft tissues a re within normal limits. The odontoid appears intact. IMPRESSION: 1. No fracture or dislocation. 2. Mild degenerative disc disease changes of the cervical spine. [facility], , 08/07/2024 2:15 PM
[2024-08-07] MEDS: KETOROLAC 15 MG/ML 1 ML VIAL IM STA (14:27)
[2024-08-07] MEDS: DEXAMETHASONE SOD PHOSPHATE 10 MG/ML 1 ML VIAL IM STA (14:31)
[2024-08-07 16:22] VITALS: BP 141/50; PULSE 70; TEMP 98.4
== END 2024-08-07 16:30 | disposition home or self-care (01) ==
LOC: EC 13:19
DX: M54.12 Radiculopathy, cervical region (principal); Z88.0 Allergy status to penicillin; Z88.1 Allergy status to other antibiotic agents; Z88.8 Allergy status to other drugs, medicaments and biological substances; Z88.5 Allergy status to narcotic agent
CPT/HCPCS: 72050; 99284; 96372 ×2; J1100; J1885